=== PATIENT | female | born 1970 | race Caucasian/White ===

== ENCOUNTER 2017-09-06 11:17 | Emergency (ER) | payer OTHER ==
[2017-09-06] MEDS: HYDROCODONE/APAP (10/325) TAB PO (11:53)
== END 2017-09-06 14:56 | disposition home or self-care (01) ==
LOC: E/R 11:17
DX: S46.911A Strain of unspecified muscle, fascia and tendon at shoulder and upper arm level, right arm, initial encounter (principal); S50.02XA Contusion of left elbow, initial encounter; V43.62XA Car passenger injured in collision with other type car in traffic accident, initial encounter
CPT/HCPCS: 73030; 73030-RT; 73080-LT; 99284-25